=== PATIENT | male | born 1990 | race Hispanic/Latino ===

== ENCOUNTER 2018-09-12 23:50 | Emergency (ER) | payer OTHER, SELFPAY ==
[2018-09-13] MEDS ORDERED: Ibuprofen 800 MG TAB ONE (00:10)
[2018-09-13] MEDS ORDERED: Dexamethasone 10 MG/ML VIAL ONE ×2 (00:19→00:22)
[2018-09-13] MEDS ORDERED: Bicillin LA 1.2 MILLION UNITS/2 ML SYRINGE ONE (00:29)
== END 2018-09-13 00:56 | disposition home or self-care (01) ==
LOC: SCSER 23:50
DX: J02.0 Streptococcal pharyngitis (principal)
CPT/HCPCS: 87430; 96372; J0561; J1100

== ENCOUNTER 2021-02-27 16:04 | Emergency (ER) | payer SELFPAY | END 2021-02-27 18:30 | disposition home or self-care (01) | LOC: ERS 16:04 | DX: S39.012A Strain of muscle, fascia and tendon of lower back, initial encounter (principal); M54.16 Radiculopathy, lumbar region; X58.XXXA Exposure to other specified factors, initial encounter | CPT/HCPCS: 99283 ==